=== PATIENT | male | born 1960 | race Caucasian/White ===

== ENCOUNTER 2020-05-21 10:33 | Inpatient (IN) ==
[2020-05-21] MEDS ORDERED: Ondansetron 4 MG/2 ML VIAL IVP STA (10:56)
[2020-05-21 11:22] LABS: Basophils % 0.8 %; Eosinophils # 0.5 K/mcL (0.0-0.6); Eosinophils % 8.5 %; Hemoglobin 10.8 g/dL (12.9-16.9); Immature Granulocytes % 1.1 % (0-4); Lymphocytes # 1.7 K/mcL (0.6-4.6); Lymphocytes % 31.6 %; Mean Corpuscular HGB Conc 30.9 g/dL (31.6-35.5); Mean Corpuscular Hemoglobin 28.7 pg (28.0-33.3); Mean Corpuscular Volume 93.1 fL (83.0-100.0); Mean Platelet Volume 10.9 fL (9.4-12.4); Monocytes # 0.6 K/mcL (0.0-1.3); Monocytes % 11.3 %; Neutrophils # 2.5 K/mcL (1.6-8.9); Platelet Count 199 K/mcL (140-400); Red Blood Count 3.76 M/mcL (4.19-5.50); Red Cell Distribution Width 16.2 % (11.5-14.5); Segmented Neutrophils % 46.7 %; White Blood Count 5.3 K/mcL (4.3-11.1)
[2020-05-21 11:24] LABS: INR 1.1; Prothrombin Time 12.6 Seconds (9.4-12.1)
[2020-05-21 11:27] LABS: Activated Partial Thrombo Time 28.9 Seconds (26.0-36.0)
[2020-05-21 11:29] LABS: BUN/Creatinine Ratio 23 (6-26); Blood Urea Nitrogen 18 mg/dL (6-20); Carbon Dioxide 31 mEq/L (23-29); Chloride 101 mEq/L (98-107); Glucose 187 mg/dL (70-105); Osmolality,Calculated 293 (280-300); Potassium 3.9 mEq/L (3.5-5.1); Sodium 138 mEq/L (136-145); eGFR For African Americans > 60 (> 60); eGFR For Non-African Americans > 60 (> 60)
[2020-05-21] MEDS ORDERED: Albuterol 2.5 MG/3 ML NEBULIZER IH PRN (14:39)
[2020-05-21] MEDS ORDERED: Acetaminophen 325 MG TABLET PO PRN (14:55)
[2020-05-21 15:55] LABS: Alanine Aminotransferase 23 Units/L (7-52); Albumin 3.8 g/dL (3.5-5.7); Alkaline Phosphatase 48 Units/L (34-104); Aspartate Amino Transferase 15 Units/L (13-39); BUN/Creatinine Ratio 23 (6-26); Bilirubin,Total 0.7 mg/dL (0.3-1.0); Blood Urea Nitrogen 15 mg/dL (6-20); Calcium 8.9 mg/dL (8.6-10.3); Carbon Dioxide 29 mEq/L (23-29); Chloride 102 mEq/L (98-107); Globulin 3.8 g/dL (2.4-3.5); Glucose 141 mg/dL (70-105); Osmolality,Calculated 287 (280-300); Potassium 3.8 mEq/L (3.5-5.1); Sodium 137 mEq/L (136-145); Total Protein 7.6 g/dL (6.4-8.9); eGFR For African Americans > 60 (> 60); eGFR For Non-African Americans > 60 (> 60)
[2020-05-21] MEDS: 0.9 % Sodium Chloride 1,000 ML IVC SCH (17:25)
[2020-05-21] MEDS: carvediloL 6.25 MG TABLET PO SCH (17:26)
[2020-05-21] MEDS: *HR* HYDROcodone/Acet 5/325 mg TABLET PO PRN ×2 (17:42→23:35)
[2020-05-21] MEDS ORDERED: D5% in Water 1,000 ML IVC PRN (17:54)
[2020-05-21] MEDS ORDERED: Dextrose Gel 15 GM/37.5 ML TUBE PO PRN ×2 (17:54)
[2020-05-21] MEDS ORDERED: *HR* Dextrose 50 % in Water (Vial) 50 ML VIAL IVP PRN (17:54)
[2020-05-21] MEDS: Insulin LISPRO 300 UNITS/3 ML VIAL SQ SCH (18:35)
[2020-05-21 18:54] LABS: Hematocrit 32.7 % (37.5-50.1); Hemoglobin 10.2 g/dL (12.9-16.9)
[2020-05-21] MEDS: LENALIDOMIDE 25 MG PO SCH (21:10)
[2020-05-21] MEDS: Gabapentin 300 MG CAPSULE PO SCH (21:14)
[2020-05-22] MEDS: *HR* HYDROcodone/Acet 5/325 mg TABLET PO PRN ×3 (03:35→17:10)
[2020-05-22] MEDS: 0.9 % Sodium Chloride 1,000 ML IVC SCH ×2 (04:56→13:52)
[2020-05-22 05:23] LABS: Basophils % 0.8 %; Eosinophils # 0.4 K/mcL (0.0-0.6); Hematocrit 32.5 % (37.5-50.1); Immature Granulocytes % 1.5 % (0-4); Lymphocytes # 1.4 K/mcL (0.6-4.6); Lymphocytes % 34.9 %; Mean Corpuscular HGB Conc 30.8 g/dL (31.6-35.5); Mean Corpuscular Hemoglobin 28.8 pg (28.0-33.3); Mean Corpuscular Volume 93.7 fL (83.0-100.0); Mean Platelet Volume 11.1 fL (9.4-12.4); Monocytes # 0.4 K/mcL (0.0-1.3); Monocytes % 10.8 %; Neutrophils # 1.7 K/mcL (1.6-8.9); Platelet Count 166 K/mcL (140-400); Red Blood Count 3.47 M/mcL (4.19-5.50); White Blood Count 3.9 K/mcL (4.3-11.1)
[2020-05-22 05:31] LABS: INR 1.2; Prothrombin Time 13.7 Seconds (9.4-12.1)
[2020-05-22 05:33] LABS: Activated Partial Thrombo Time 28.8 Seconds (26.0-36.0)
[2020-05-22] MEDS: Insulin LISPRO 300 UNITS/3 ML VIAL SQ SCH ×2 (08:01→12:39)
[2020-05-22] MEDS: Gabapentin 300 MG CAPSULE PO SCH ×2 (08:02→20:47)
[2020-05-22] MEDS: carvediloL 6.25 MG TABLET PO SCH ×2 (08:04→17:11)
[2020-05-22] MEDS ORDERED: amLODIPine 5 MG TABLET PO SCH (09:00)
[2020-05-22] MEDS ORDERED: Aspirin 81 MG TAB.CHEW PO SCH (09:00)
[2020-05-22] MEDS: Insulin DETEMIR 100 UNIT/ML X5UNITS SQ SCH ×2 (13:51→20:48)
[2020-05-22] MEDS: Pantoprazole 40 MG VIAL IVP SCH (17:12)
[2020-05-22 19:10] LABS: Hematocrit 33.8 % (37.5-50.1); Hemoglobin 10.3 g/dL (12.9-16.9)
[2020-05-22] MEDS: LENALIDOMIDE 25 MG PO SCH (20:48)
[2020-05-23] MEDS: *HR* HYDROcodone/Acet 5/325 mg TABLET PO PRN (00:41)
[2020-05-23] MEDS: 0.9 % Sodium Chloride 1,000 ML IVC SCH ×2 (00:41→13:17)
[2020-05-23 05:24] LABS: Basophils % 0.8 %; Eosinophils # 0.3 K/mcL (0.0-0.6); Eosinophils % 7.2 %; Hematocrit 33.6 % (37.5-50.1); Hemoglobin 9.9 g/dL (12.9-16.9); INR 1.2; Lymphocytes # 1.4 K/mcL (0.6-4.6); Lymphocytes % 36.2 %; Mean Corpuscular HGB Conc 29.5 g/dL (31.6-35.5); Mean Corpuscular Hemoglobin 27.2 pg (28.0-33.3); Mean Corpuscular Volume 92.3 fL (83.0-100.0); Mean Platelet Volume 11.6 fL (9.4-12.4); Monocytes # 0.3 K/mcL (0.0-1.3); Monocytes % 8.8 %; Neutrophils # 1.8 K/mcL (1.6-8.9); Platelet Count 194 K/mcL (140-400); Prothrombin Time 13.8 Seconds (9.4-12.1); Red Blood Count 3.64 M/mcL (4.19-5.50); Red Cell Distribution Width 15.8 % (11.5-14.5); White Blood Count 3.9 K/mcL (4.3-11.1)
[2020-05-23 05:27] LABS: Activated Partial Thrombo Time 27.2 Seconds (26.0-36.0)
[2020-05-23 05:45] LABS: BUN/Creatinine Ratio 10 (6-26); Blood Urea Nitrogen 6 mg/dL (6-20); Calcium 8.2 mg/dL (8.6-10.3); Carbon Dioxide 29 mEq/L (23-29); Chloride 102 mEq/L (98-107); Glucose 120 mg/dL (70-105); Osmolality,Calculated 283 (280-300); Potassium 3.6 mEq/L (3.5-5.1); Sodium 137 mEq/L (136-145); eGFR For African Americans > 60 (> 60); eGFR For Non-African Americans > 60 (> 60)
[2020-05-23] MEDS: Pantoprazole 40 MG VIAL IVP SCH (09:03)
[2020-05-23 10:47] LABS: Estimated Average Glucose 189 mg/dl
[2020-05-23] MEDS ORDERED: *HR* FentaNYL (PF) 100 MCG/2 ML VIAL ONE (16:13)
[2020-05-23] MEDS ORDERED: *HR* Midazolam HCl 5 MG/5 ML VIAL IVP ONE ×2 (16:14→16:33)
[2020-05-23] MEDS ORDERED: *HR* FentaNYL (PF) 100 MCG/2 ML VIAL IVP ONE (16:33)
[2020-05-23 16:56] VITALS: BP 134/60
== END 2020-05-23 19:37 | disposition still patient (30) | DRG 378 ==
LOC: 3ANU 10:33 → EMEROOARM 10:33 → 3NENU 13:56
PROVIDERS: ADMIT Internal Medicine; ATTEND Internal Medicine

== ENCOUNTER 2021-07-24 11:22 | Observation (INO) ==
[2021-07-24] MEDS ORDERED: 0.9 % Sodium Chloride 500 ML IV ONE (16:00)
[2021-07-24 16:21] LABS: Basophils # 0.1 K/mcL (0.0-0.2); Basophils % 2.3 %; Eosinophils # 0.3 K/mcL (0.0-0.6); Eosinophils % 5.3 %; Hematocrit 41.2 % (37.5-50.1); Hemoglobin 12.7 g/dL (12.9-16.9); Immature Granulocytes % 0.8 % (0-4); Lymphocytes # 1.7 K/mcL (0.6-4.6); Lymphocytes % 35.7 %; Mean Corpuscular HGB Conc 30.8 g/dL (31.6-35.5); Mean Corpuscular Hemoglobin 27.3 pg (28.0-33.3); Mean Corpuscular Volume 88.4 fL (83.0-100.0); Mean Platelet Volume 10.2 fL (9.4-12.4); Monocytes # 1.1 K/mcL (0.0-1.3); Monocytes % 22.7 %; Neutrophils # 1.6 K/mcL (1.6-8.9); Platelet Count 192 K/mcL (140-400); Red Blood Count 4.66 M/mcL (4.19-5.50); Red Cell Distribution Width 15.5 % (11.5-14.5); Segmented Neutrophils % 33.2 %; White Blood Count 4.7 K/mcL (4.3-11.1)
[2021-07-24 16:26] LABS: Bilirubin,Urine Negative (Negative); Blood,Urine Negative (Negative); Clarity,Urine Clear (Clear); Color,Urine Colorless (Yellow); Glucose,Urine (UA) Normal (Normal); Ketones,Urine Negative (Negative); Leukocyte Esterase,Urine Negative (Negative); Nitrite,Urine Negative (Negative); Protein,Urine Negative (Neg-Trace); Specific Gravity,Urine 1.008 (1.010-1.025); Urobilinogen,Urine Normal (Normal)
[2021-07-24 16:43] LABS: Alanine Aminotransferase 26 Units/L (7-52); Albumin 4.2 g/dL (3.5-5.7); Albumin/Globulin Ratio 1.9 (1.1-2.2); Alkaline Phosphatase 62 Units/L (34-104); Aspartate Amino Transferase 14 Units/L (13-39); BUN/Creatinine Ratio 19 (6-26); Bilirubin,Direct 0.1 mg/dL (0.0-0.2); Bilirubin,Indirect 0.5 mg/dL (0.0-1.0); Bilirubin,Total 0.6 mg/dL (0.3-1.0); Blood Urea Nitrogen 15 mg/dL (6-20); C-Reactive Protein < 5 mg/L (Less than 10); Calcium 9.7 mg/dL (8.6-10.3); Carbon Dioxide 34 mEq/L (23-29); Chloride 95 mEq/L (98-107); Globulin 2.2 g/dL (2.4-3.5); Glucose 146 mg/dL (70-105); Osmolality,Calculated 283 (280-300); Potassium 4.2 mEq/L (3.5-5.1); Sodium 135 mEq/L (136-145); Total Protein 6.4 g/dL (6.4-8.9); eGFR For African Americans > 60 (> 60); eGFR For Non-African Americans > 60 (> 60)
[2021-07-24 16:56] LABS: Platelet Estimate Normal (Normal); Reactive Lymphocytes Present (Not Present)
[2021-07-24 20:00] LABS: Influenza A PCR Negative (Negative); Influenza B PCR Negative (Negative); Resp. Syncytial Virus PCR Negative (Negative)
[2021-07-24 20:02] LABS: SARS-CoV-2 by PCR (In House) Negative (Negative)
[2021-07-24] MEDS ORDERED: Naloxone 0.4 MG/ML INJ IVP PRN (20:13)
[2021-07-24] MEDS ORDERED: Acetaminophen 325 MG TABLET PO PRN (20:13)
[2021-07-24] MEDS ORDERED: Melatonin 3 MG TABLET PO PRN (20:13)
[2021-07-24] MEDS ORDERED: Ondansetron ODT 4 MG TAB.RAPDIS SL PRN (20:13)
[2021-07-24] MEDS ORDERED: Gadolinium Contrast Agent (WT Based) IV PRN (20:37)
[2021-07-24] MEDS ORDERED: *HR* HYDROcodone/Acet 5/325 mg TABLET PO PRN (20:53)
[2021-07-24] MEDS: carvediloL 6.25 MG TABLET PO SCH (21:53)
[2021-07-24] MEDS: Gabapentin 300 MG CAPSULE PO SCH (23:02)
[2021-07-24] MEDS: Divalproex Sodium 125 MG Sprinkle Capsule (DR) PO SCH (23:02)
[2021-07-24] MEDS: *HR* OxyCODONE Immed Rel 5 MG TABLET PO PRN (23:02)
[2021-07-25 00:07] LABS: Basophils # 0.1 K/mcL (0.0-0.2); Basophils % 1.9 %; Eosinophils # 0.3 K/mcL (0.0-0.6); Hematocrit 37.4 % (37.5-50.1); Immature Granulocytes % 0.6 % (0-4); Lymphocytes # 1.7 K/mcL (0.6-4.6); Lymphocytes % 33.1 %; Mean Corpuscular HGB Conc 32.1 g/dL (31.6-35.5); Mean Corpuscular Hemoglobin 27.8 pg (28.0-33.3); Mean Corpuscular Volume 86.6 fL (83.0-100.0); Mean Platelet Volume 10.4 fL (9.4-12.4); Monocytes # 1.2 K/mcL (0.0-1.3); Monocytes % 23.2 %; Neutrophils # 1.9 K/mcL (1.6-8.9); Platelet Count 187 K/mcL (140-400); Red Blood Count 4.32 M/mcL (4.19-5.50); Red Cell Distribution Width 15.4 % (11.5-14.5); Segmented Neutrophils % 36.2 %; White Blood Count 5.2 K/mcL (4.3-11.1)
[2021-07-25] MEDS ORDERED: Gadolinium Contrast Agent (WT Based) IV PRN (00:31)
[2021-07-25 01:35] LABS: Platelet Estimate Normal (Normal)
[2021-07-25] MEDS ORDERED: SUVOREXANT 10 MG PO PRN (04:11)
[2021-07-25] MEDS: *HR* OxyCODONE Immed Rel 5 MG TABLET PO PRN ×2 (05:28→12:46)
[2021-07-25 06:24] LABS: Alanine Aminotransferase 24 Units/L (7-52); Albumin 3.8 g/dL (3.5-5.7); Albumin/Globulin Ratio 2.2 (1.1-2.2); Alkaline Phosphatase 53 Units/L (34-104); Aspartate Amino Transferase 15 Units/L (13-39); BUN/Creatinine Ratio 19 (6-26); Bilirubin,Total 0.8 mg/dL (0.3-1.0); Blood Urea Nitrogen 16 mg/dL (6-20); Calcium 8.8 mg/dL (8.6-10.3); Carbon Dioxide 34 mEq/L (23-29); Chloride 94 mEq/L (98-107); Globulin 1.7 g/dL (2.4-3.5); Glucose 268 mg/dL (70-105); Osmolality,Calculated 287 (280-300); Potassium 4.3 mEq/L (3.5-5.1); Sodium 133 mEq/L (136-145); Total Protein 5.5 g/dL (6.4-8.9); eGFR For African Americans > 60 (> 60); eGFR For Non-African Americans > 60 (> 60)
[2021-07-25] MEDS ORDERED: *HR* Metformin 500 MG TABLET PO SCH (09:00)
[2021-07-25] MEDS ORDERED: Acyclovir 200 MG CAPSULE PO SCH (09:00)
[2021-07-25] MEDS: carvediloL 6.25 MG TABLET PO SCH (09:00)
[2021-07-25] MEDS: QUEtiapine Fumarate 25 MG TABLET PO SCH ×2 (09:00→09:19)
[2021-07-25] MEDS ORDERED: Spironolactone 25 MG TABLET PO SCH (09:00)
[2021-07-25] MEDS ORDERED: amLODIPine 5 MG TABLET PO SCH (09:00)
[2021-07-25] MEDS ORDERED: Insulin DETEMIR 100 UNIT/ML X5UNITS SUBQ SCH (09:00)
[2021-07-25] MEDS ORDERED: lamoTRIgine 100 MG TABLET PO SCH (09:00)
[2021-07-25] MEDS: Gabapentin 300 MG CAPSULE PO SCH (09:19)
[2021-07-25] MEDS: Divalproex Sodium 125 MG Sprinkle Capsule (DR) PO SCH (09:19)
[2021-07-25] MEDS ORDERED: GADOBUTROL 30 MMOL/30 ML VIAL IVP ONE (10:13)
[2021-07-25] MEDS ORDERED: dexAMETHasone 4 MG TABLET PO SCH (12:00)
[2021-07-25 12:17] VITALS: O2SAT 92
[2021-07-25] MEDS ORDERED: *HR* FentaNYL PATCH 25 MCG PATCH TD SCH (14:30)
[2021-07-25 15:05] VITALS: BP 149/75; PULSE 83; TEMP 98.9
== END 2021-07-25 17:26 | disposition home or self-care (01) ==
LOC: 3BNU 11:22 → EMEROOARM 11:22 → SUATTDRO 19:59 → 3BNU 21:01
PROVIDERS: ADMIT Family Medicine; ATTEND Registered Nurse

== ENCOUNTER 2022-04-06 12:46 | Inpatient (IN) ==
[2022-04-06] MEDS ORDERED: Iopamidol - 370 500 ML MLS IVP ONE (13:51)
[2022-04-06 14:19] LABS: Basophils # 0.1 K/mcL (0.0-0.2); Basophils % 0.9 %; Eosinophils # 0.1 K/mcL (0.0-0.6); Eosinophils % 0.5 %; Hematocrit 40.5 % (37.5-50.1); Hemoglobin 12.1 g/dL (12.9-16.9); Immature Granulocytes % 0.2 % (0-4); Lymphocytes # 1.8 K/mcL (0.6-4.6); Lymphocytes % 18.1 %; Mean Corpuscular HGB Conc 29.9 g/dL (31.6-35.5); Mean Corpuscular Hemoglobin 25.4 pg (28.0-33.3); Mean Corpuscular Volume 85.1 fL (83.0-100.0); Mean Platelet Volume 10.6 fL (9.4-12.4); Monocytes # 1.3 K/mcL (0.0-1.3); Neutrophils # 6.8 K/mcL (1.6-8.9); Platelet Count 138 K/mcL (140-400); Red Blood Count 4.76 M/mcL (4.19-5.50); Red Cell Distribution Width 14.8 % (11.5-14.5); Segmented Neutrophils % 67.3 %; White Blood Count 10.1 K/mcL (4.3-11.1)
[2022-04-06 14:25] LABS: INR 1.2; Prothrombin Time 13.1 Seconds (9.4-12.1)
[2022-04-06 14:36] LABS: Alanine Aminotransferase 39 Units/L (7-52); Albumin 4.3 g/dL (3.5-5.7); Albumin/Globulin Ratio 2.2 (1.1-2.2); Alkaline Phosphatase 52 Units/L (34-104); Aspartate Amino Transferase 25 Units/L (13-39); BUN/Creatinine Ratio 22 (6-26); Bilirubin,Total 0.7 mg/dL (0.3-1.0); Blood Urea Nitrogen 24 mg/dL (6-20); Calcium 9.2 mg/dL (8.6-10.3); Carbon Dioxide 36 mEq/L (23-29); Chloride 93 mEq/L (98-107); Glucose 206 mg/dL (70-105); Lipase 25 Units/L (11-82); Magnesium 2.4 mg/dL (1.6-2.6); Osmolality,Calculated 284 (280-300); Potassium 5.4 mEq/L (3.5-5.1); Sodium 132 mEq/L (136-145); Total Protein 6.3 g/dL (6.4-8.9); eGFR For African Americans > 60 (> 60); eGFR For Non-African Americans > 60 (> 60)
[2022-04-06 14:38] LABS: ABG Base Excess 5 mEq/L (-2 to 3); ABG HCO3 32 mEq/L (21-27); ABG Oxygen Saturation 76 % (95-98); ABG PCO2 56 mmHg (35-45); ABG PH 7.36 pH Units (7.32-7.45); ABG PO2 44 mmHg (85-104); ABG TCO2 33 mEq/L (20-26)
[2022-04-06 15:02] LABS: Bilirubin,Urine Negative (Negative); Blood,Urine Negative (Negative); Clarity,Urine Clear (Clear); Color,Urine Yellow (Yellow); Glucose,Urine (UA) >=1000 mg/dL (Normal); Hyaline Casts,Urine Few per lpf (None Seen); Ketones,Urine Trace mg/dL (Negative); Leukocyte Esterase,Urine Negative (Negative); Nitrite,Urine Negative (Negative); PH,Urine 5.5 pH Units (5.0-8.0); Protein,Urine Trace mg/dL (Neg-Trace); RBC,Urine 0-3 per hpf (0-3); Specific Gravity,Urine > 1.030 (1.010-1.025); Squamous Epithelial Cell,Urine Few per hpf (None-Few); Urobilinogen,Urine Normal (Normal); WBC,Urine 0-3 per hpf (0-3)
[2022-04-06] MEDS ORDERED: Piperacillin/Tazobactam 3.375 GM in 0.9 % Sodium Chloride Mini Bag 100 ML IVPB ONE (15:25)
[2022-04-06] MEDS ORDERED: Vancomycin 1,750 MG/517.5 ML IV.SOLN IVPB ONE (15:25)
[2022-04-06] MEDS ORDERED: Melatonin 3 MG TABLET PO PRN (16:49)
[2022-04-06] MEDS ORDERED: Acetaminophen 325 MG TABLET PO PRN (16:49)
[2022-04-06] MEDS ORDERED: Mag Hydrox/Al Hydrox/Simeth 30 ML UDC PO PRN (16:49)
[2022-04-06] MEDS ORDERED: Naloxone 0.4 MG/ML INJ IVP PRN (16:49)
[2022-04-06 16:53] LABS: Adenovirus Not Detected (Not Detect); Bordetella Pertussis Not Detected (Not Detect); Chlamydophila pneumoniae Not Detected (Not Detect); Coronavirus 229E Not Detected (Not Detect); Coronavirus HKU1 Not Detected (Not Detect); Coronavirus NL63 Not Detected (Not Detect); Coronavirus OC43 Not Detected (Not Detect); Human Metapneumovirus Not Detected (Not Detect); Human Rhinovirus/Enterovirus Not Detected (Not Detect); Influenza A Subtype 2009 H1 Not Detected (Not Detect); Influenza B Not Detected (Not Detect); Mycoplasma pneumoniae Not Detected (Not Detect); Parainfluenza Virus 1 Not Detected (Not Detect); Parainfluenza Virus 2 Not Detected (Not Detect); Parainfluenza Virus 3 Not Detected (Not Detect); Parainfluenza Virus 4 Not Detected (Not Detect); Respiratory Syncytial Virus Not Detected (Not Detect); SARS-CoV-2 Not Detected (Not Detect)
[2022-04-06] MEDS ORDERED: Dextrose Gel 15 GM/37.5 ML TUBE PO PRN ×2 (17:04)
[2022-04-06] MEDS ORDERED: *HR* Dextrose 50 % in Water (Syg) 50 ML SYRINGE IVP PRN (17:04)
[2022-04-06] MEDS ORDERED: D5% in Water 1,000 ML IVC PRN (17:04)
[2022-04-06] MEDS: Insulin LISPRO 300 UNITS/3 ML VIAL SUBQ SCH ×2 (17:52→20:24)
[2022-04-06] MEDS ORDERED: *HR* OxyCODONE Immed Rel 5 MG TABLET PO PRN (18:11)
[2022-04-06] MEDS ORDERED: polyethylene glycoL 3350 17 GM POWD.PACK PO PRN (18:11)
[2022-04-06] MEDS ORDERED: QUEtiapine Fumarate 25 MG TABLET PO PRN (18:11)
[2022-04-06 18:24] LABS: Estimated Average Glucose 180 mg/dl; Hemoglobin A1C 7.9 %
[2022-04-06] MEDS: Magnesium Oxide 400 MG TABLET PO SCH (20:23)
[2022-04-06] MEDS: Divalproex Sodium 125 MG Sprinkle Capsule (DR) PO SCH (20:23)
[2022-04-06] MEDS: Gabapentin 400 MG CAPSULE PO SCH (20:23)
[2022-04-06] MEDS: LEMBOREXANT 10 MG PO SCH (21:36)
[2022-04-07] MEDS: Piperacillin/Tazobactam 3.375 GM in 0.9 % Sodium Chloride Mini Bag 100 ML IVPB SCH ×3 (00:23→16:49)
[2022-04-07 02:09] LABS: Basophils # 0.1 K/mcL (0.0-0.2); Basophils % 1.1 %; Eosinophils # 0.3 K/mcL (0.0-0.6); Eosinophils % 3.9 %; Hematocrit 37.9 % (37.5-50.1); Hemoglobin 11.3 g/dL (12.9-16.9); Immature Granulocytes % 0.1 % (0-4); Lymphocytes # 1.7 K/mcL (0.6-4.6); Lymphocytes % 22.1 %; Mean Corpuscular HGB Conc 29.8 g/dL (31.6-35.5); Mean Corpuscular Hemoglobin 25.2 pg (28.0-33.3); Mean Corpuscular Volume 84.6 fL (83.0-100.0); Mean Platelet Volume 10.6 fL (9.4-12.4); Monocytes # 1.1 K/mcL (0.0-1.3); Monocytes % 14.6 %; Neutrophils # 4.3 K/mcL (1.6-8.9); Platelet Count 131 K/mcL (140-400); Red Blood Count 4.48 M/mcL (4.19-5.50); Red Cell Distribution Width 14.7 % (11.5-14.5); Segmented Neutrophils % 58.2 %; White Blood Count 7.5 K/mcL (4.3-11.1)
[2022-04-07 02:25] LABS: BUN/Creatinine Ratio 20 (6-26); Blood Urea Nitrogen 18 mg/dL (6-20); Calcium 8.5 mg/dL (8.6-10.3); Carbon Dioxide 35 mEq/L (23-29); Chloride 95 mEq/L (98-107); Glucose 189 mg/dL (70-105); Osmolality,Calculated 287 (280-300); Potassium 4.3 mEq/L (3.5-5.1); Sodium 135 mEq/L (136-145); eGFR For African Americans > 60 (> 60); eGFR For Non-African Americans > 60 (> 60)
[2022-04-07] MEDS ORDERED: Vancomycin 1,750 MG/517.5 ML IV.SOLN IVPB SCH (06:00)
[2022-04-07] MEDS: Insulin LISPRO 300 UNITS/3 ML VIAL SUBQ SCH ×4 (08:23→21:32)
[2022-04-07] MEDS: Multivit/Ca/Min/Fe/FA 1 TAB TABLET PO SCH (08:32)
[2022-04-07] MEDS: Divalproex Sodium 125 MG Sprinkle Capsule (DR) PO SCH ×2 (08:32→21:48)
[2022-04-07] MEDS: Magnesium Oxide 400 MG TABLET PO SCH ×2 (08:32→21:49)
[2022-04-07] MEDS: Gabapentin 400 MG CAPSULE PO SCH ×2 (08:32→21:48)
[2022-04-07] MEDS: Aspirin Enteric Coated 81 MG Tablet PO SCH (08:32)
[2022-04-07] MEDS: lamoTRIgine 100 MG TABLET PO SCH (08:33)
[2022-04-07] MEDS: Cholecalciferol (D-3) 1,000 UNIT (25MCG) TABLET PO SCH (08:33)
[2022-04-07] MEDS: Azithromycin 250 MG TABLET PO SCH (08:33)
[2022-04-07] MEDS: *HR* Enoxaparin 40 MG/0.4 ML SYRINGE SQ SCH (12:41)
[2022-04-07] MEDS ORDERED: *HR* FentaNYL PATCH 100 MCG PATCH TD SCH (14:00)
[2022-04-07] MEDS: LEMBOREXANT 10 MG PO SCH (21:49)
[2022-04-08] MEDS: Piperacillin/Tazobactam 3.375 GM in 0.9 % Sodium Chloride Mini Bag 100 ML IVPB SCH ×2 (00:39→08:14)
[2022-04-08] MEDS ORDERED: POMALYST 2 MG PO SCH (06:00)
[2022-04-08] MEDS: *HR* Enoxaparin 40 MG/0.4 ML SYRINGE SQ SCH (06:02)
[2022-04-08 06:59] VITALS: BP 131/74; PULSE 58; TEMP 98
[2022-04-08 07:38] LABS: Alanine Aminotransferase 35 Units/L (7-52); Albumin/Globulin Ratio 2.2 (1.1-2.2); Alkaline Phosphatase 45 Units/L (34-104); Aspartate Amino Transferase 22 Units/L (13-39); BUN/Creatinine Ratio 14 (6-26); Bilirubin,Total 0.7 mg/dL (0.3-1.0); Blood Urea Nitrogen 11 mg/dL (6-20); Calcium 8.4 mg/dL (8.6-10.3); Carbon Dioxide 39 mEq/L (23-29); Chloride 96 mEq/L (98-107); Globulin 1.8 g/dL (2.4-3.5); Glucose 149 mg/dL (70-105); Osmolality,Calculated 286 (280-300); Potassium 4.5 mEq/L (3.5-5.1); Sodium 137 mEq/L (136-145); Total Protein 5.8 g/dL (6.4-8.9); eGFR For African Americans > 60 (> 60); eGFR For Non-African Americans > 60 (> 60)
[2022-04-08] MEDS: Cholecalciferol (D-3) 1,000 UNIT (25MCG) TABLET PO SCH (08:16)
[2022-04-08] MEDS: Multivit/Ca/Min/Fe/FA 1 TAB TABLET PO SCH (08:16)
[2022-04-08] MEDS: Gabapentin 400 MG CAPSULE PO SCH (08:17)
[2022-04-08] MEDS: Azithromycin 250 MG TABLET PO SCH (08:17)
[2022-04-08] MEDS: lamoTRIgine 100 MG TABLET PO SCH (08:18)
[2022-04-08] MEDS: Aspirin Enteric Coated 81 MG Tablet PO SCH (08:18)
[2022-04-08] MEDS: Divalproex Sodium 125 MG Sprinkle Capsule (DR) PO SCH (08:19)
[2022-04-08] MEDS: Magnesium Oxide 400 MG TABLET PO SCH (08:19)
[2022-04-08] MEDS: Insulin LISPRO 300 UNITS/3 ML VIAL SUBQ SCH ×2 (08:47→11:49)
[2022-04-08 10:28] VITALS: O2SAT 95
== END 2022-04-08 12:21 | disposition home or self-care (01) | DRG 193 ==
LOC: 3BNU 12:46 → EMEROOARM 12:46 → SUATTDRO 16:35 → 3BNU 17:05
PROVIDERS: ADMIT Internal Medicine; ATTEND Internal Medicine